=== PATIENT | male | born 1955 | race African-American/Black ===

== ENCOUNTER 2022-02-17 12:04 | Emergency (ER) | payer OTHER, MEDICARE, MEDICAID ==
[~2022-02-17] VITALS: Ht 188 cm; Wt 95.5 kg
[2022-02-17] MEDS ORDERED: NAPROXEN500 MG PO (13:27)
[2022-02-17 13:33] VITALS: BP 147/85
== END 2022-02-17 13:59 | disposition home or self-care (01) | DRG 605 ==
LOC: ED 12:04
DX: S40.022A Contusion of left upper arm, initial encounter (principal); V49.40XA Driver injured in collision with unspecified motor vehicles in traffic accident, initial encounter